=== PATIENT | male | born 1965 | race Caucasian/White ===

== ENCOUNTER 2018-08-18 22:54 | Emergency (ER) | payer OTHER ==
[~2018-08-18] VITALS: Ht 182.9 cm; Wt 119.0 kg
[2018-08-18] MEDS ORDERED: PROPOFOL 10 MG/ML, 20ML ONE ×2 (23:25)
[2018-08-18 23:27] LABS: BASOPHILS # (AUTO) 0.03 x10^3/uL (0-0.1); BASOPHILS % (AUTO) 0 % (0-1); EOSINOPHILS # (AUTO) 0.25 x10^3/uL (0-0.4); EOSINOPHILS % (AUTO) 3 % (1-7); LYMPHOCYTES # (AUTO) 3.03 x10^3/uL (1-3.4); LYMPHOCYTES % (AUTO) 32 % (22-44); MD NO; MEAN CORPUSCULAR HEMOGLOBIN 31.2 pg (27.5-34.5); MEAN CORPUSCULAR HGB CONC 34.3 g/dL (33.2-36.2); MEAN CORPUSCULAR VOLUME 91.1 fL (81-97); MEAN PLATELET VOLUME 7.3 fL (7.4-10.4); MONOCYTES % (AUTO) 6 % (2-9); NEUTROPHILS # (AUTO) 5.62 x10^3/uL (1.8-6.8); NEUTROPHILS % (AUTO) 59 % (42-75); PLATELET COUNT 285 x10^3/uL (130-400); RED BLOOD COUNT 4.99 x10^6/uL (4.38-5.82); RED CELL DISTRIBUTION WIDTH 13.8 % (9.4-14.8)
--- NOTE | 2018-08-18 23:27 | NUR ---
PT PRESENTS TO ED FROM HOME W/ CO PALPITATIONS AND SOB X 1900 THIS EVENING. HX OF AFIB, AND REPORTS COMPLIANCE WITH MEDICATIONS. PT ON ASA DAILY, NO OTHER BLOOD THINNERS. PT LAYING IN GURNEY, NAD NOTED. A&OX4; PWD. RESPIRATIONS EVEN AND UNLABORED; SPO2 >90% ON RA. DENIES N/V/CP. BP/SPO2/ECG MONITORING IN PLACE. AFIB, RATE 100-140 NOTED ON MONITOR. IV ESTABSLISHED, LABS DRAWN. ERP AT BEDSIDE. AWAITING LAB RESULTS FOR CONSCIOUS SEDATION AND CARDIOVERSION. CONSENT SIGNED.
[2018-08-18] MEDS ORDERED: PROPOFOL 10 MG/ML, 20ML IVPush ONE (23:30)
[2018-08-18] MEDS ORDERED: SODIUM CHLORIDE FLUSH 10ML SYR IVF ONE (23:30)
[2018-08-18 23:38] LABS: ALANINE AMINOTRANSFERASE 32 U/L (12-78); ALBUMIN 3.8 g/dL (3.4-5.0); ANION GAP 11 mmol/L (5-15); CALCIUM 8.3 mg/dL (8.5-10.1); CHLORIDE 107 mmol/L (98-107); CREATININE 0.96 mg/dL (0.7-1.3); T4 (THYROXINE) 7.5 mcg/dL (4.5-12.1)
[2018-08-18 23:48] LABS: ALKALINE PHOSPHATASE 82 U/L (45-117); BILIRUBIN,TOTAL 0.2 mg/dL (0.2-1.0); TOTAL PROTEIN 7.2 g/dL (6.4-8.2)
--- NOTE | 2018-08-19 00:44 | NUR ---
LATE ENTRY FOR CONSCIOUS SEDATION: ROOM/PT PREP'D FOR CONSCIOUS SEDATION/CARDIOVERSION. CODE CART/AMBU/O2 BY NC ON PT. BP/SPO2/ECG MONITORING IN PLACE. AFIB ON MONITOR, HR 120-140. 0014: TIME OUT. PT/ERP/RN PRESENT. 0016: PT MEDICATED BY ERP W/ A TOTAL OF 120MG PROPOFOL W/ DESIRED EFFECT. PT ON 6L O2 BY NC FOR MODERATE DESAT. W/ ADDITIONAL O2 AND JAW THRUST MANEUVER, SPO2 >90%. 0018: INITIAL ATTEMPT TO CARDIOVERT W/ 150J. PT ENTERED SINUS RHYTHM BRIEFLY THEN CONVERTED BACK TO RAPID AFIB 0020: SECOND ATTEMPT TO CARDIOVERT, 200J. SUCCESSFUL CONVERSION TO NSR, RATE 70-80. REPEAT EKG COMPLETED BY THIS RN AND PROVIDED TO ERP FOR REVIEW. PT REMAINS MOSTLY SEDATED, REQUIRING OCCASIONAL JAW THRUST FOR DESAT AND SNORING. 0025: PT ARROUSABLE TO VOICE, O2 TO 2L BY NC. AIRWAY PATENT. PT MANAGING OWN SECRETIONS. NSR ON MONITOR. 0035: PT SITTING UP IN GURNEY, FREQUENT DOZING. EASILY ARROUSABLE TO VOICE. NSR ON MONITOR. SPO2 >90% ON 2L. SO AT BEDSIDE. POC IS DC UPON FULL RECOVERY FROM SEDATION. PT REMAINS PWD; NAD NOTED.
--- NOTE | 2018-08-19 01:06 | NUR ---
PT MAINTAINING SPO2 >90% ON RA. REMAINS IN NSR. TAKING PO FLUIDS WO DIFFICULTY. AIRWAY PATENT AND MANAGING OWN SECRETIONS. IV DC'D. PT OFF MONITORING AT THIS TIME AND ALLOWED TO DRESS. PT DENIES SOB/CP. DC EDUCATION PROVIDED, PT DEMONSTRATES UNDERSTANDING. PT TRANSFERED SELF WO DIFFICULTY TO WHEELCHAIR. WHEELED TO DC WITH RN. SO TO TRANSPORT PT HOME.
[2018-08-19 01:08] VITALS: BP 100/70
== END 2018-08-19 01:10 | disposition home or self-care (01) ==
LOC: ED 23:59
DX: I48.91 Unspecified atrial fibrillation (principal)
CPT/HCPCS: 36415; 71045; 80053; 83735; 84436; 84443; 85025; 92960; 93005

== ENCOUNTER 2020-01-24 10:04 | Outpatient (CLI) | payer OTHER ==
[2020-01-24] MEDS ORDERED: DIGO125T85 PO (10:29)
[2020-01-24] MEDS ORDERED: APIX5TAB PO (10:29)
[2020-01-24] MEDS ORDERED: FLEC100T PO (10:29)
[2020-01-24] MEDS ORDERED: DIGO250T3 PO (10:29)
[2020-01-24] MEDS ORDERED: CARV-39 PO (10:29)
== END 2020-01-24 23:59 | disposition home or self-care (01) ==
LOC: STAR 10:04
PROVIDERS: ATTEND Internal Medicine Cardiovascular Disease
DX: Z02.9 Encounter for administrative examinations, unspecified (principal)

== ENCOUNTER → 2020-01-24 | Outpatient (CLI) | payer OTHER ==
[~2020-01-24] MED LIST: APIX5TAB PO; CARV-39 PO; DIGO125T85 PO; DIGO250T3 PO; FLEC100T PO; OMNIPAQUE 350 MG/ML, 150 ML BOTTLE ONE
== END | disposition home or self-care (01) ==
LOC: CFH 12:17
PROVIDERS: ATTEND Internal Medicine Cardiovascular Disease
DX: Z01.818 Encounter for other preprocedural examination (principal); I48.0 Paroxysmal atrial fibrillation
CPT/HCPCS: 71046; 75572; Q9967

== ENCOUNTER 2020-01-26 05:49 | Observation (INO) | payer OTHER ==
[2020-01-24 11:03] LABS: BASOPHILS # (AUTO) 0.03 x10^3/uL (0-0.1); BASOPHILS % (AUTO) 0 % (0-1); EOSINOPHILS # (AUTO) 0.23 x10^3/uL (0-0.4); EOSINOPHILS % (AUTO) 3 % (1-7); LYMPHOCYTES # (AUTO) 3.08 x10^3/uL (1-3.4); LYMPHOCYTES % (AUTO) 37 % (22-44); MD NO; MEAN CORPUSCULAR HEMOGLOBIN 32.1 pg (27.5-34.5); MEAN CORPUSCULAR HGB CONC 33.4 g/dL (33.2-36.2); MEAN CORPUSCULAR VOLUME 96.1 fL (81-97); MEAN PLATELET VOLUME 7.4 fL (7.4-10.4); MONOCYTES # (AUTO) 0.67 x10^3/uL (0.2-0.8); MONOCYTES % (AUTO) 8 % (2-9); NEUTROPHILS % (AUTO) 52 % (42-75); PLATELET COUNT 274 x10^3/uL (130-400); RED BLOOD COUNT 5.18 x10^6/uL (4.38-5.82)
[2020-01-24 12:03] LABS: ANION GAP 2 mmol/L (5-15); CHLORIDE 113 mmol/L (98-107)
[~2020-01-26] VITALS: Ht 182.9 cm; Wt 124.0 kg
[~2020-01-26 05:49] MED LIST changes: -OMNIPAQUE 350 MG/ML, 150 ML BOTTLE ONE
[2020-01-26] MEDS ORDERED: SODIUM CHLORIDE 0.9% 1,000 ML IV SCH (06:11)
[2020-01-26 06:29] VITALS: BP 128/78
[2020-01-26] MEDS ORDERED: FENTANYL PF 100 MCG/2ML ONE ×4 (07:51→13:51)
[2020-01-26] MEDS ORDERED: MIDAZOLAM 1 MG/ML, 2ML ONE (07:51)
[2020-01-26] MEDS ORDERED: LIDOCAINE-MPF 2% ,5ML ONE (07:52)
[2020-01-26] MEDS ORDERED: hydrALAzine 20 MG/ML, 1ML IV PRN (08:00)
[2020-01-26] MEDS ORDERED: ACETAMINOPHEN 325 MG TABLET PO PRN ×2 (08:00→13:30)
[2020-01-26] MEDS ORDERED: HYDROmorphone 1 MG/ML, 1ML INJ IVPush PRN (08:00)
[2020-01-26] MEDS ORDERED: LABETALOL 5MG/ML, 20ML IV PRN (08:00)
[2020-01-26] MEDS ORDERED: EPHEDRINE 50 MG/ML, 1ML IVPush PRN (08:00)
[2020-01-26] MEDS ORDERED: MEPERIDINE/PF 25MG/0.5ML IVPush PRN (08:00)
[2020-01-26] MEDS ORDERED: PROMETHAZINE 25 MG/ML, 1ML IVPush PRN (08:00)
[2020-01-26] MEDS ORDERED: ONDANSETRON 2MG/ML, 2ML IVPush PRN (08:00)
[2020-01-26] MEDS ORDERED: LIDOCAINE 2%, 20ML ONE (08:09)
[2020-01-26] MEDS ORDERED: PROPOFOL 10 MG/ML, 20ML ONE (08:23)
[2020-01-26] MEDS ORDERED: DEXAMETHASONE 4 MG/ML, 1ML ONE (08:23)
[2020-01-26] MEDS ORDERED: SUCCINYLCHOLINE 20 MG/ML, 10ML ONE (08:23)
[2020-01-26] MEDS ORDERED: ONDANSETRON 2MG/ML, 2ML ONE (08:23)
[2020-01-26] MEDS ORDERED: ROCURONIUM 10MG/ML,5ML ONE ×3 (08:23→11:54)
[2020-01-26] MEDS ORDERED: SUGAMMADEX 200 MG/2 ML IVPush ONE (08:24)
[2020-01-26] MEDS ORDERED: HEPARIN 1,000 UNITS/ML, 10ML ONE ×3 (09:28)
[2020-01-26] MEDS ORDERED: OXYcodone 5 MG/5 ML ORAL.SOL UDC ONE ×2 (13:26→13:52)
[2020-01-26] MEDS: OXYcodone 5 MG/5 ML ORAL.SOL UDC PO PRN ×2 (13:27→14:00)
[2020-01-26] MEDS: FENTANYL PF 100 MCG/2ML IV PRN ×2 (13:30→13:35)
[2020-01-26] MEDS ORDERED: CYCLOBENZAPRINE 10 MG TABLET ONE (13:36)
[2020-01-26] MEDS ORDERED: APIXABAN 5 MG TABLET ONE (13:51)
[2020-01-26] MEDS ORDERED: CYCLOBENZAPRINE 10 MG TABLET PO ONE (14:00)
[2020-01-26] MEDS ORDERED: APIXABAN 5 MG TABLET PO ONE (14:00)
[2020-01-26 14:46] VITALS: BP 141/88
[2020-01-26] MEDS ORDERED: DIGOXIN 0.125 MG TABLET PO SCH (15:41)
[2020-01-26 20:49] VITALS: BP 122/83
[2020-01-26] MEDS: FLECAINIDE 100MG TABLET PO SCH (20:53)
[2020-01-26] MEDS: COLCHICINE 0.6 MG CAPSULE PO SCH (20:53)
[2020-01-26] MEDS: APIXABAN 5 MG TABLET PO SCH (20:53)
[2020-01-26] MEDS: CARVEDILOL 25 MG TABLET PO SCH (20:53)
[2020-01-26] MEDS ORDERED: APIXABAN 5 MG TABLET PO SCH (21:00)
[2020-01-27 01:47] VITALS: BP 112/70
[2020-01-27 08:29] VITALS: BP 125/76
[2020-01-27] MEDS: APIXABAN 5 MG TABLET PO SCH (08:55)
[2020-01-27] MEDS: CARVEDILOL 25 MG TABLET PO SCH (08:55)
[2020-01-27] MEDS: COLCHICINE 0.6 MG CAPSULE PO SCH (08:55)
[2020-01-27] MEDS: FLECAINIDE 100MG TABLET PO SCH (08:55)
[2020-01-27] MEDS ORDERED: DIGOXIN 0.25 MG TABLET PO SCH (09:00)
[2020-01-27] MEDS ORDERED: COLC0.6C3 PO (09:58)
[2020-01-27] MEDS ORDERED: APIX5TAB PO (09:58)
== END 2020-01-27 15:59 | disposition home or self-care (01) ==
LOC: CACL 05:49 → INTOOBSV 13:10 → ORIP 13:10 → 5SO 14:44
PROVIDERS: ADMIT Internal Medicine Cardiovascular Disease; ATTEND Internal Medicine Cardiovascular Disease
DX: Z03.818 Encounter for observation for suspected exposure to other biological agents ruled out (principal); I48.0 Paroxysmal atrial fibrillation; I48.92 Unspecified atrial flutter; I10 Essential (primary) hypertension; G47.30 Sleep apnea, unspecified; Z79.899 Other long term (current) drug therapy; Z79.01 Long term (current) use of anticoagulants
CPT/HCPCS: 36415; 80048; 85025; 87635; 93306; 93312; 93321; 93325; 93356; 93613; 93655; 93656; 93657; 93662; C1730; C1732; C1759; C1766; C1893; C1894; G0378; J0330; J1100; J1644; J2250; J2405; J2704; J3010; J3490; 85347